=== PATIENT | female | born 1990 | race Caucasian/White ===

== ENCOUNTER 2017-11-14 17:26 | Emergency (ER) | payer MEDICAID ==
[~2017-11-14] VITALS: Ht 154.9 cm; Wt 110.0 kg
[2017-11-14 17:28] VITALS: BP 150/77; PULSE 63; RESP 14; TEMP 98.4; O2SAT 100
[2017-11-14] MEDS ORDERED: SODIUM CHLORIDE 0.9% FLUSH 10 ML FLUSH IVF PRN (18:15)
[2017-11-14] MEDS ORDERED: SODIUM CHLOR 0.9% 1000 ML INJ 1,000 ML IV ONE (18:30)
[2017-11-14 19:02] VITALS: RESP 16; O2SAT 100
[2017-11-14 19:06] LABS: AUTOMATED NEUTROPHIL # 5.1 TH/MM3 (1.8-7.7); BASOPHIL # 0.1 TH/MM3 (0-0.2); BASOPHIL % 0.9 % (0.0-2.0); EOSINOPHIL # 0.3 TH/MM3 (0-0.4); EOSINOPHIL % 3.4 % (0.0-4.0); HEMATOCRIT 38.8 % (35.0-46.0); HEMOGLOBIN 12.9 GM/DL (11.6-15.3); LYMPH % 37.6 % (9.0-44.0); LYMPHOCYTE # 3.6 TH/MM3 (1.0-4.8); MEAN CELL VOLUME 80.4 FL (80.0-100.0); MEAN CORPUSCULAR HEMOGLOBIN 26.7 PG (27.0-34.0); MEAN CORPUSCULAR HGB CONC 33.2 % (32.0-36.0); MEAN PLATELET VOLUME 7.4 FL (7.0-11.0); MONO % 5.7 % (0.0-8.0); MONOCYTE # 0.5 TH/MM3 (0-0.9); NEUT % 52.4 % (16.0-70.0); PLATELET COUNT 412 TH/MM3 (150-450); RED BLOOD COUNT 4.82 MIL/MM3 (4.00-5.30); RED CELL DISTRIBUTION WIDTH 14.8 % (11.6-17.2); WHITE BLOOD COUNT 9.7 TH/MM3 (4.0-11.0)
[2017-11-14 19:07] LABS: BILIRUBIN, URINE NEG (NEG); BLOOD, URINE TRACE (NEG); GLUCOSE,URINE NEG (NEG); KETONE, URINE NEG (NEG); MUCUS URINE FEW /lpf (OCC); NITRITE,URINE NEG (NEG); PH, URINE 5.5 (5.0-8.5); SQUAMOUS EPITHELIAL CELL URINE 4 /hpf (0-5); URINE COLOR LIGHT-YELLOW (YELLW/STRAW); URINE LEUKOCYTE ESTERASE SMALL (NEG)
[2017-11-14 19:15] LABS: PROTHROMBIN TIME - PATIENT 10.4 SEC (9.8-11.6)
[2017-11-14 19:23] LABS: ALT (GPT) 28 U/L (10-53)
[2017-11-14 19:25] LABS: ALKALINE PHOSPHATASE 118 U/L (45-117); TOTAL BILIRUBIN ADULT 0.2 MG/DL (0.2-1.0); TOTAL PROTEIN 7.8 GM/DL (6.4-8.2)
[2017-11-14 19:29] LABS: ALBUMIN 3.8 GM/DL (3.4-5.0); AST (GOT) 19 U/L (15-37); BICARBONATE 26.5 MEQ/L (21.0-32.0); BLOOD UREA NITROGEN 14 MG/DL (7-18); CHLORIDE 107 MEQ/L (98-107); CREATININE 1.04 MG/DL (0.50-1.00); GLOMERULAR FILTRATION RATE 64 ML/MIN (>89); GLUCOSE,RANDOM 72 MG/DL (74-106); SODIUM (NA) 140 MEQ/L (136-145)
--- NOTE | 2017-11-14 19:36 | PD ---
HPI Chief Complaint: Syncope/Near-Syncope Time Seen by Provider: 17:51 Travel History International Travel<30 days: No Contact w/Intl Traveler<30days: No Traveled to known affect area: No History of Present Illness HPI 27-year-old female presents to the ED for evaluation of 3 day history of dizziness. Patient states that today she began experiencing worsening symptoms , including nausea and a single episode of vomiting. Symptoms accompanied by blurred vision, worsened when changing focal depth. No alleviating or exacerbating factors reported. She denies headache, cold or flu symptoms, ear pain, sinus congestion, chest pain, palpitations, shortness of breath, abdominal pain, nausea, vomiting, dysuria, weakness in the extremities. She denies previous medical history. She is not currently taking any medications. Denies illicit drug use. Never had any symptoms like this before. LMP . She had her eyes checked 2 years ago. Last blood work done about a year ago. PFSH Past Medical History Influenza Vaccination: No ?: Not Past Surgical History Cholecystectomy: Yes Social History Alcohol Use: Yes (social) Tobacco Use: No Substance Use: No Allergies-Medications (Allergen,Severity, Reaction): Coded Allergies: No Known Allergies (Unverified , 11/14/17) Reported Meds & Prescriptions Reported Meds & Active Scripts Active Zofran Odt (Ondansetron Odt) 4 Mg Tab 4 Mg SL Q8HR PRN Review of Systems Except as stated in HPI: all other systems reviewed are Neg Physical Exam Narrative GENERAL: Obese female in no acute distress. SKIN: Focused skin assessment warm/dry. HEAD: Normocephalic. Atraumatic. EYES: No scleral icterus. No injection or drainage. PERRLA. EOMI. ENT: [place] tympanic membranes bilaterally. Oropharynx without erythema, edema, exudate. NECK: Supple, trachea midline. No JVD or lymphadenopathy. CARDIOVASCULAR: Regular rate and rhythm without murmurs, gallops, or rubs. RESPIRATORY: Breath sounds clear and equal bilaterally. No accessory muscle use. GASTROINTESTINAL: Abdomen soft, non-tender, nondistended. Active bowel sounds. MUSCULOSKELETAL: No cyanosis, or edema. Moves the extremities spontaneously. NEUROLOGICAL: Awake and alert. Cranial nerves II through XII intact. Motor and sensory grossly within normal limits. Five out of 5 muscle strength in all muscle groups. Normal speech. BACK: Nontender without obvious deformity. No CVA tenderness. Data Data Last Documented VS Vital Signs Date Time Temp Pulse Resp B/P (MAP) Pulse Ox O2 Delivery O2 Flow Rate FiO2 11/14/17 19:02 16 100 Room Air 11/14/17 17:28 98.4 63 Orders Orders Ed Urine Pregnancytest Poc (11/14/17 18:10) Complete Blood Count With Diff (11/14/17 18:10) Comprehensive Metabolic Panel (11/14/17 18:10) Act Partial Throm Time (Ptt) (11/14/17 18:10) Prothrombin Time / Inr (Pt) (11/14/17 18:10) Urinalysis - C+S If Indicated (11/14/17 18:10) Ecg Monitoring (11/14/17 18:10) Iv Access Insert/Monitor (11/14/17 18:10) Oximetry (11/14/17 18:10) Sodium Chloride 0.9% Flush (Ns Flush) (11/14/17 18:15) Electrocardiogram (11/14/17 18:19) Troponin I (11/14/17 18:19) Ct Brain W/O Iv Contrast(Rout) (11/14/17 18:19) Blood Glucose (11/14/17 18:19) Sodium Chlor 0.9% 1000 Ml Inj (Ns 1000 M (11/14/17 18:30) Thyroid Stimulating Hormone (11/14/17 18:37) Ed Discharge Order (11/14/17 20:29) Labs Laboratory Tests Test 11/14/17 18:25 11/14/17 18:45 White Blood Count 9.7 TH/MM3 Red Blood Count 4.82 MIL/MM3 Hemoglobin 12.9 GM/DL Hematocrit 38.8 % Mean Corpuscular Volume 80.4 FL Mean Corpuscular Hemoglobin 26.7 PG Mean Corpuscular Hemoglobin Concent 33.2 % Red Cell Distribution Width 14.8 % Platelet Count 412 TH/MM3 Mean Platelet Volume 7.4 FL Neutrophils (%) (Auto) 52.4 % Lymphocytes (%) (Auto) 37.6 % Monocytes (%) (Auto) 5.7 % Eosinophils (%) (Auto) 3.4 % Basophils (%) (Auto) 0.9 % Neutrophils # (Auto) 5.1 TH/MM3 Lymphocytes # (Auto) 3.6 TH/MM3 Monocytes # (Auto) 0.5 TH/MM3 Eosinophils # (Auto) 0.3 TH/MM3 Basophils # (Auto) 0.1 TH/MM3 CBC Comment DIFF FINAL Differential Comment Prothrombin Time 10.4 SEC Prothromb Time International Ratio 1.0 RATIO Activated Partial Thromboplast Time 26.0 SEC Blood Urea Nitrogen 14 MG/DL Creatinine 1.04 MG/DL Random Glucose 72 MG/DL Total Protein 7.8 GM/DL Albumin 3.8 GM/DL Calcium Level 9.0 MG/DL Alkaline Phosphatase 118 U/L Aspartate Amino Transf (AST/SGOT) 19 U/L Alanine Aminotransferase (ALT/SGPT) 28 U/L Total Bilirubin 0.2 MG/DL Sodium Level 140 MEQ/L Potassium Level 3.9 MEQ/L Chloride Level 107 MEQ/L Carbon Dioxide Level 26.5 MEQ/L Anion Gap 7 MEQ/L Estimat Glomerular Filtration Rate 64 ML/MIN Troponin I LESS THAN 0.02 NG/ML Thyroid Stimulating Hormone 3rd Gen 0.601 uIU/ML Urine Color LIGHT-YELLOW Urine Turbidity CLEAR Urine pH 5.5 Urine Specific [place] 1.011 Urine Protein NEG mg/dL Urine Glucose (UA) NEG mg/dL Urine Ketones NEG mg/dL Urine Occult Blood TRACE Urine Nitrite NEG Urine Bilirubin NEG Urine Urobilinogen LESS THAN 2.0 MG/DL Urine Leukocyte Esterase SMALL Urine RBC 2 /hpf Urine WBC 3 /hpf Urine Squamous Epithelial Cells 4 /hpf Urine Mucus FEW /lpf Microscopic Urinalysis Comment CULT NOT INDICATED MDM Medical Decision Making Medical Screen Exam Complete: Yes Emergency Medical Condition: Yes Differential Diagnosis dehydration versus metabolic derangement versus anemia versus less likely ICH versus other Narrative Course 27-year-old female presents to the ED for evaluation of 3 day history of dizziness. Patient states that today she began experiencing worsening symptoms , including nausea and a single episode of vomiting this afternoon. Symptoms accompanied by blurred vision, worsened when changing focal depth. Denies illicit drug use. Never had any symptoms like this before. LMP 11/06/17. She had her eyes checked 2 years ago. Vitals reviewed. On exam there are no focal neuro deficits. ENT exam is unremarkable. No appreciable M/R/G. Chest CTA B. Abdomen soft and nontender. IV was established. Patient was administered [address] brain: No acute cranial abnormality is identified per radiology read. Bedside urine test negative. UA: No culture indicated. TSH: 0.601 11/14/17 18:25 Total Protein 7.8, Albumin 3.8, Calcium Level 9.0, Alkaline Phosphatase 118 H, Aspartate Amino Transf (AST/SGOT) 19, Alanine Aminotransferase (ALT/SGPT) 28, Total Bilirubin 0.2 On recheck the patient states that she still having difficulties with vision, especially when changing focal depth. I discussed the results of the workup with the patient. Prescribed a few doses of Zofran, to be taken if nausea returns. I recommended that she follow-up with her applications scientist for further evaluation, return to the ED for worsening symptoms. The patient is agreeable with this plan. She indicated understanding of the instructions. She is stable and discharged home. Diagnosis Primary Impression: Dizziness, nonspecific Additional Impression: Nausea & vomiting Qualified Codes: R11.2 - Nausea with vomiting, unspecified Referrals: Primary Care Physician Patient Instructions: Dizziness (ED), General Instructions Additional Instructions: Rest, hydrate. Return to normal, gentle activities as tolerated. Under the tongue Zofran as needed for continued nausea and vomiting. Follow-up with your primary care provider and applications scientist. Return to the ED for any urgent or emergent medical condition. Med/Other Pt SpecificInfo: Prescription(s) given Scripts Ondansetron Odt (Zofran Odt) 4 Mg Tab 4 MG SL Q8HR Y for Nausea/Vomiting, #5 TAB 0 Refills Prov: Kailyn Rivas MD 11/14/17 Disposition: DISCHARGE HOME Condition: Stable Yanira Moreno Nov 14, 2017 19:36
--- NOTE | 2017-11-14 20:15 | RADRPT ---
EXAM DATE/TIME: 11/14/2017 19:47 [facility] COMPARISON: No previous studies available for comparison. INDICATIONS : Light headed and dizzy with nausea and vomiting. RADIATION DOSE: 37.62 CTDIvol (mGy) MEDICAL HISTORY : None SURGICAL HISTORY : Cholecystectomy. ENCOUNTER: Initial ACUITY: 1 day PAIN SCALE: 3/10 LOCATION: cranial TECHNIQUE: Multiple contiguous axial images were obtained of the head. Using automated exposure control and adj ustment of the mA and/or kV according to patient size, radiation dose was kept as low as reasonably a chievable to obtain optimal diagnostic quality images. DICOM format image data is available electro nically for review and comparison. FINDINGS: CEREBRUM: The ventricles are normal for age. No evidence of midline shift, mass lesion, hemorrhage or acute in farction. No extra-axial fluid collections are seen. POSTERIOR FOSSA: The cerebellum and brainstem are intact. The 4th ventricle is midline. The cerebellopontine angle i s unremarkable. EXTRACRANIAL: The visualized portion of the orbits is intact. SKULL: The calvaria is intact. No evidence of skull fracture. CONCLUSION: No acute intracranial abnormality is identified. Gumaro Garcia MD on November 14, 2017 at 20:11 Board Certified Radiologist. This report was verified electronically.
[2017-11-14] MEDS ORDERED: ZOFR4TAB3 SL (20:29)
== END 2017-11-14 21:28 | disposition home or self-care (01) ==
LOC: NEPC 17:26
DX: R42 Dizziness and giddiness (principal); R11.2 Nausea with vomiting, unspecified; H53.8 Other visual disturbances
CPT/HCPCS: 70450; 80053; 81001; 84443; 84484; 84703; 85025; 85610; 85730; 96360; 99285; J7030

== ENCOUNTER 2017-11-27 08:07 | Emergency (ER) | payer MEDICAID ==
[~2017-11-27] VITALS: Ht 154.9 cm; Wt 100.0 kg
[~2017-11-27 08:07] MED LIST: ZOFR4TAB3 SL
[2017-11-27 08:10] VITALS: BP 130/70; PULSE 68; RESP 16; TEMP 97.7; O2SAT 99
[2017-11-27 08:43] LABS: AUTOMATED NEUTROPHIL # 4.2 TH/MM3 (1.8-7.7); BASOPHIL # 0.1 TH/MM3 (0-0.2); BASOPHIL % 0.9 % (0.0-2.0); EOSINOPHIL # 0.3 TH/MM3 (0-0.4); EOSINOPHIL % 4.1 % (0.0-4.0); HEMATOCRIT 39.8 % (35.0-46.0); HEMOGLOBIN 13.5 GM/DL (11.6-15.3); LYMPH % 39.7 % (9.0-44.0); LYMPHOCYTE # 3.4 TH/MM3 (1.0-4.8); MEAN CELL VOLUME 80.3 FL (80.0-100.0); MEAN CORPUSCULAR HEMOGLOBIN 27.3 PG (27.0-34.0); MEAN PLATELET VOLUME 7.4 FL (7.0-11.0); MONO % 5.9 % (0.0-8.0); MONOCYTE # 0.5 TH/MM3 (0-0.9); NEUT % 49.4 % (16.0-70.0); PLATELET COUNT 364 TH/MM3 (150-450); RED BLOOD COUNT 4.96 MIL/MM3 (4.00-5.30); RED CELL DISTRIBUTION WIDTH 14.5 % (11.6-17.2); WHITE BLOOD COUNT 8.5 TH/MM3 (4.0-11.0)
[2017-11-27 08:55] LABS: BACTERIA, URINE FEW /hpf; BILIRUBIN, URINE NEG (NEG); BLOOD, URINE TRACE (NEG); GLUCOSE,URINE NEG (NEG); KETONE, URINE NEG (NEG); MUCUS URINE FEW /lpf (OCC); NITRITE,URINE NEG (NEG); PH, URINE 5.5 (5.0-8.5); SQUAMOUS EPITHELIAL CELL URINE 10 /hpf (0-5); URINE COLOR YELLOW (YELLW/STRAW); URINE LEUKOCYTE ESTERASE LARGE (NEG)
[2017-11-27 09:03] LABS: ALBUMIN 3.7 GM/DL (3.4-5.0); ALT (GPT) 26 U/L (10-53); AST (GOT) 12 U/L (15-37); BICARBONATE 23.1 MEQ/L (21.0-32.0); BLOOD UREA NITROGEN 12 MG/DL (7-18); CALCIUM 8.4 MG/DL (8.5-10.1); CHLORIDE 109 MEQ/L (98-107); CREATININE 0.74 MG/DL (0.50-1.00); GLOMERULAR FILTRATION RATE 94 ML/MIN (>89); GLUCOSE,RANDOM 96 MG/DL (74-106); SODIUM (NA) 141 MEQ/L (136-145)
[2017-11-27 09:09] LABS: ALKALINE PHOSPHATASE 125 U/L (45-117); TOTAL BILIRUBIN ADULT 0.3 MG/DL (0.2-1.0)
--- NOTE | 2017-11-27 09:39 | PD ---
HPI Chief Complaint: GI Complaint Time Seen by Provider: 09:23 Travel History International Travel<30 days: No Contact w/Intl Traveler<30days: No Traveled to known affect area: No History of Present Illness HPI 27-year-old female states that she started having nonbloody emesis at 2 AM this morning. She states she feels like she needs to have a bowel movement but denies specific diarrhea. She denies any abdominal pain, fever or other concurrent complaints. She states no specific modifying factors. Quality is nonbloody. Severity is couple episodes. Duration is couple of hours. PFSH Past Medical History Medical History: Denies Significant Hx Tetanus Vaccination: Unknown Influenza Vaccination: No ?: Not LMP: 11/04/17 Past Surgical History Section: Yes Cholecystectomy: Yes Social History Alcohol Use: Yes (social) Tobacco Use: No Substance Use: No Allergies-Medications (Allergen,Severity, Reaction): Coded Allergies: No Known Allergies (Unverified , 11/27/17) Reported Meds & Prescriptions Reported Meds & Active Scripts Active Zofran Odt (Ondansetron Odt) 4 Mg Tab 4 Mg SL Q6HR PRN Review of Systems Except as stated in HPI: all other systems reviewed are Neg Physical Exam Narrative GENERAL: 27-year-old female who is well-appearing SKIN: Focused skin assessment warm/dry. HEAD: Atraumatic. Normocephalic. EYES: Pupils equal and round. No scleral icterus. No injection or drainage. ENT: No nasal bleeding or discharge. Mucous membranes pink and moist. NECK: Trachea midline. No JVD. CARDIOVASCULAR: Regular rate and rhythm. No murmur appreciated. RESPIRATORY: No accessory muscle use. Clear to auscultation. Breath sounds equal bilaterally. GASTROINTESTINAL: Abdomen soft, non-tender, nondistended. MUSCULOSKELETAL: No obvious deformities. No clubbing. No cyanosis. No edema. NEUROLOGICAL: Awake and alert. No obvious cranial nerve deficits. Motor grossly within normal limits. Normal speech. PSYCHIATRIC: Appropriate mood and affect; insight and judgment normal. Data Data Last Documented VS Vital Signs Date Time Temp Pulse Resp B/P (MAP) Pulse Ox O2 Delivery O2 Flow Rate FiO2 11/27/17 08:10 97.7 68 16 130/70 (90) 99 Orders Orders Complete Blood Count With Diff (11/27/17 08:12) Comprehensive Metabolic Panel (11/27/17 08:12) Urinalysis - C+S If Indicated (11/27/17 08:12) Iv Access Insert/Monitor (11/27/17 08:12) Oximetry (11/27/17 08:12) Lipase (11/27/17 08:12) Ed Urine Pregnancytest Poc (11/27/17 09:23) Ondansetron Odt (Zofran Odt) (11/27/17 09:45) Oral Rehydration (11/27/17 09:32) Ed Discharge Order (11/27/17 10:52) Labs Laboratory Tests Test 11/27/17 08:17 White Blood Count 8.5 TH/MM3 Red Blood Count 4.96 MIL/MM3 Hemoglobin 13.5 GM/DL Hematocrit 39.8 % Mean Corpuscular Volume 80.3 FL Mean Corpuscular Hemoglobin 27.3 PG Mean Corpuscular Hemoglobin Concent 34.0 % Red Cell Distribution Width 14.5 % Platelet Count 364 TH/MM3 Mean Platelet Volume 7.4 FL Neutrophils (%) (Auto) 49.4 % Lymphocytes (%) (Auto) 39.7 % Monocytes (%) (Auto) 5.9 % Eosinophils (%) (Auto) 4.1 % Basophils (%) (Auto) 0.9 % Neutrophils # (Auto) 4.2 TH/MM3 Lymphocytes # (Auto) 3.4 TH/MM3 Monocytes # (Auto) 0.5 TH/MM3 Eosinophils # (Auto) 0.3 TH/MM3 Basophils # (Auto) 0.1 TH/MM3 CBC Comment DIFF FINAL Differential Comment Urine Color YELLOW Urine Turbidity HAZY Urine pH 5.5 Urine Specific [place] 1.023 Urine Protein TRACE mg/dL Urine Glucose (UA) NEG mg/dL Urine Ketones NEG mg/dL Urine Occult Blood TRACE Urine Nitrite NEG Urine Bilirubin NEG Urine Urobilinogen LESS THAN 2.0 MG/DL Urine Leukocyte Esterase LARGE Urine RBC 2 /hpf Urine WBC 3 /hpf Urine Squamous Epithelial Cells 10 /hpf Urine Bacteria FEW /hpf Urine Mucus FEW /lpf Microscopic Urinalysis Comment CULT NOT INDICATED Blood Urea Nitrogen 12 MG/DL Creatinine 0.74 MG/DL Random Glucose 96 MG/DL Total Protein 8.0 GM/DL Albumin 3.7 GM/DL Calcium Level 8.4 MG/DL Alkaline Phosphatase 125 U/L Aspartate Amino Transf (AST/SGOT) 12 U/L Alanine Aminotransferase (ALT/SGPT) 26 U/L Total Bilirubin 0.3 MG/DL Sodium Level 141 MEQ/L Potassium Level 3.9 MEQ/L Chloride Level 109 MEQ/L Carbon Dioxide Level 23.1 MEQ/L Anion Gap 9 MEQ/L Estimat Glomerular Filtration Rate 94 ML/MIN Lipase 128 U/L MDM Medical Decision Making Medical Screen Exam Complete: Yes Emergency Medical Condition: Yes Medical Record Reviewed: Yes (Past history confirmed) Interpretation(s) CBC & BMP Diagram 11/27/17 08:17 Total Protein 8.0, Albumin 3.7, Calcium Level 8.4 L, Alkaline Phosphatase 125 H , Aspartate Amino Transf (AST/SGOT) 12 L, Alanine Aminotransferase (ALT/SGPT) 26 , Total Bilirubin 0.3 Differential Diagnosis , gastroenteritis, pancreatitis, dehydration Narrative Course Lab work from triage without emergent process. test is negative. We will dose with Zofran by mouth and orally hydrate. Patient agrees if can tolerate this to go home with prescription for this. Patient without any other concurrent symptoms at this time. no emesis here, tolerating po challenge, Patient denies any new complaints and states that they are feeling better. Patient happy with care, all questions answered. Patient knows that follow up is incumbent on them and to return to the emergency room immediately if new or worsening symptoms develop. Patient given strict return precautions, vitals reviewed and are normal, agrees to further workup as an outpatient. Diagnosis Primary Impression: Vomiting Qualified Codes: R11.2 - Nausea with vomiting, unspecified Patient Instructions: General Instructions Additional Instructions: return as needed, follow with primary this week, zofran as needed Med/Other Pt SpecificInfo: Prescription(s) given Scripts Ondansetron Odt (Zofran Odt) 4 Mg Tab 4 MG SL Q6HR Y for Nausea/Vomiting, #10 TAB 0 Refills Prov: Jaqueline Galvez MD 11/27/17 Disposition: 01 DISCHARGE HOME Condition: Stable Jaqueline Galvez MD Nov 27, 2017 09:39
[2017-11-27] MEDS ORDERED: ONDANSETRON ODT 4 MG TAB PO ONE (09:45)
[2017-11-27] MEDS ORDERED: ZOFR4TAB3 SL (10:54)
== END 2017-11-27 11:06 | disposition home or self-care (01) ==
LOC: NEPC 08:07
DX: R11.2 Nausea with vomiting, unspecified (principal)
CPT/HCPCS: 80053; 81001; 83690; 84703; 85025; 99283